=== PATIENT | female | born 1980 | race Caucasian/White ===

== ENCOUNTER 2023-01-15 12:25 | Outpatient (CLI) | payer OTHER, SELFPAY ==
--- NOTE | 2023-01-15 08:34 | W.ANESCHARGE ---
Anesthesia Charges Start Date/Time Anesthesia Start Date: 01/15/23 Anesthesia Start Time: 13:40 Stop Date/Time Anesthesia Stop Date: 01/15/23 Anesthesia Stop Time: 14:00
--- NOTE | 2023-01-15 13:59 | W.ANESCHARGE ---
Anesthesia Charges Start Date/Time Anesthesia Start Date: 01/15/23 Anesthesia Start Time: 13:40 Stop Date/Time Anesthesia Stop Date: 01/15/23 Anesthesia Stop Time: 14:00
== END 2023-01-15 12:26 | disposition home or self-care (01) ==
PROVIDERS: PCP Physician Assistant Medical; Visit Provider Internal Medicine Gastroenterology
DX: R11.15 Cyclical vomiting syndrome unrelated to migraine (principal)
CPT/HCPCS: 43239; 731; 88305; J2704